=== PATIENT | male | born 1950 ===

== ENCOUNTER 2018-11-01 06:50 | Day surgery (SDC) | payer OTHER | END 2018-11-01 12:55 | disposition home or self-care (01) | LOC: AMB-ENDOS 06:50 | DX: D12.0 Benign neoplasm of cecum (principal); K64.8 Other hemorrhoids ==

== ENCOUNTER 2020-09-03 08:55 | Day surgery (SDC) | payer OTHER | END 2020-09-03 13:35 | disposition home or self-care (01) | LOC: AMB-ENDOS 08:55 | PROVIDERS: ATTEND Colon & Rectal Surgery | DX: D12.2 Benign neoplasm of ascending colon (principal); K62.1 Rectal polyp; Z20.822 Contact with and (suspected) exposure to COVID-19; Z12.11 Encounter for screening for malignant neoplasm of colon ==